=== PATIENT | female | born 1950 | race Caucasian/White ===

== ENCOUNTER 2023-01-21 20:30 | Emergency (ER) | payer MEDICARE, SELFPAY ==
[2023-01-21 20:31] VITALS: BP 154/87; PULSE 82; RESP 18; TEMP 36.7; O2SAT 95; BMI 26.5
[2023-01-21 21:15] LABS: Absolute Lymphocyte Count 2.57 X10^3/uL (0.83-4.51); Absolute Neutrophil Count 3.5 X10^3/uL (2.0-7.7); Basophil# 0.05 X10^3/uL; Basophil% 0.7 % (0-1); Eosinophil# 0.49 X10^3/uL; Eosinophils% 6.7 % (0-5); Hematocrit 36.7 % (37-47); Hemoglobin 11.4 g/dL (12.0-15.0); Lymphocyte # 2.57 X10^3/ul (0.83-4.51); Lymphocyte % 35.2 % (19-41); Mean Corp Hgb Conc 31.1 g/dL (32-36); Mean Corpuscular Hgb 24.3 pg (27.0-32.0); Mean Corpuscular Volume 78.3 fL (81-99); Mean Platelet Vol. 10.6 fl (6.2-12.0); Monocyte# 0.64 X10^3/uL; Monocyte% 8.8 % (0-10); NRBC Flagged by Analyzer 0 % (0-5); Neutrophil # 3.51 X10^3/uL (2.7-7.7); Neutrophil % 48.1 % (47-70); Platelet Count 335 K/mm3 (150-450); RBC Distribution Width CV 16.3 % (11.6-14.6); RBC Distribution Width SD 45.6 fl (35.1-43.9); Red Blood Count 4.69 M/mm3 (4.2-5.4); White Blood Count 7.3 K/mm3 (4.4-11.0)
[2023-01-21 21:35] LABS: ALB/GLOB Ratio 0.6 RATIO (0.9-2.4); AST(SGOT) 17 U/L (15-37); Alanine Aminotransfer ALT/SGPT 31 U/L (13-56); Albumin, Serum 2.6 g/dL (3.2-5.0); Alkaline Phosphatase 133 U/L (45-117); Anion Gap 5 (5-15); BUN 7 mg/dL (7-18); Calcium,Total 8.4 mg/dL (8.5-10.1); Chloride 110 mmol/L (98-107); EST Glomerular Filtration Rate 58 mL/min (>60); Est Glom Filt Rate - Afr Amer 70 mL/min (>60); Estimated Creatinine Clearance 48.72 ml/min; Glucose 99 mg/dL (74-106); Lipase 27 U/L (13-75); Potassium 3.2 mmol/L (3.5-5.1); Protein, Total 6.6 g/dL (6.4-8.2); Sodium Level 143 mmol/L (136-145)
--- NOTE | 2023-01-21 22:07 | ED.VIS.GI ---
HPI HPI - GI History of Present Illness Chief Complaint: GI Bleed Narrative Narrative: 72-year-old female presenting with blood in her stool. She has history of hemorrhoids but does not believe a cause. She shows me a picture of a with a small amount of blood in the stool. She does not feel lightheaded, dizzy, short of breath. She not on any blood thinners. She states she does have some discomfort in her abdomen because she recently had a hiatal hernia repair but her surgical scars appear to be okay. Patient has not had fever, chills. No urinary complaints. Has been eating and drinking normally. Patient does have history of diverticulitis but states he is not having significant left lower quadrant pain PFSH PFSH Home Medications citalopram 20 mg tablet 20 mg PO DAILY 04/14/13 [History Last Taken Unknown] levothyroxine 50 mcg tablet 50 mcg PO DAILY 04/14/13 [History Last Taken Unknown] lorazepam 1 mg tablet 1 mg PO TID ##10 04/14/13 [Rx Last Taken Unknown] omeprazole 20 mg capsule,delayed release 30 mg PO DAILY 04/14/13 [History Last Taken Unknown] amoxicillin 875 mg-potassium clavulanate 125 mg tablet 1 tab PO BID #20 tabs 01/21/23 [Rx Last Taken Unknown] Allergy/AdvReac Type Severity Reaction Status Date / Time tobramycin Allergy Intermediate Swelling Verified 01/21/23 20:36 Social History Smoking Status: Never smoker ROS [facility] ED Constitutional Constitutional ED: Denies chills, fever(s) or sweats Eyes Eyes: Denies blurry vision or change in vision ENT ENT ED: Denies ear pain or sore throat Cardiovascular Cardiovascular: Denies chest pain, palpitations or racing heartbeat Respiratory/Chest Respiratory/Chest: Denies cough, dyspnea or sputum Gastrointestinal Gastrointestinal: Reports abdominal pain and other Details: Blood in stool, hemorrhoid ; Denies constipation, diarrhea, nausea or vomiting Genitourinary Genitourinary ED: Denies dysuria, hematuria or urinary frequency Musculoskeletal Musculoskeletal: Denies arthralgias, myalgias or neck pain Integumentary Denies abscess, Abrasions or rash Neurologic Neurologic: Denies headache(s), paresthesias or weakness Psychiatric Psychiatric: Denies anxiety, depression, suicidal ideation or suicidal thoughts Endocrine Endocrinology: Denies polydipsia or polyuria EXAM Physical Exam Const Vital Signs: 01/21/23 20:31 Temperature 98.0 F Temperature Source Temporal Pulse Rate 82 Respiratory Rate 18 Blood Pressure 154/87 H Blood Pressure Mean 109 Pulse Ox 95 Oxygen Delivery Method Room Air Positive well nourished HEENT Reports TM's clear and moist mucous membranes normocephalic and atraumatic Tympanic Membrane ED: Yes TM's clear Eyes PERRL Resp normal respiratory effort Cardio regular rate and regular rhythm GI GI Narrative: Surgical scars appear to be clean, dry, intact. Abdomen shows no peritoneal signs. She does have nonbleeding, nonthrombosed circumferential hemorrhoids around the rectum. Palpation: soft Neuro CN's II-XII intact bilaterally and moves all extremities Sensorium / Orientation: alert Psych mental status grossly normal MDM MDM MDM Narrative Medical decision making narrative: Patient presenting with blood in stool. She states it was a small amount. She showed me some images which shows a small amount. Differential includes bleeding hemorrhoids, diverticulitis, colitis, postoperative bleeding, anemia. CBC is obtained to assess for white blood cell count, hemoglobin, platelets. CMP to assess renal function, electrolytes and liver function. Patient denies analgesia. Are perirectal hemorrhoids although I do not see any blood here. CBC shows a hemoglobin of 11.4. On 01/15/2023 this was 10.7 so this is actually improved. White blood cell count today is 7.3 and on the it was 7.29 so it is very similar.LFTs are normal. Lipase negative. CT of the abdomen pelvis with IV contrast. He is abdomen pelvis with IV contrast shows concern for postoperative changes at the distal esophagus versus loculated pleural effusion. Patient still complaining any shortness of breath. I was able to speak to her surgeon Dr. Alvarado, and she did state that clear there would be some postoperative changes at the distal esophagus following a Marie fundoplication which is what the patient ultimately had. She stated that the contents will be arranged. It is also interpreted as possible small pleural effusions. The surgeon did tell me that she was hypoxic for short time after the surgery but recovered well and then ended up going home. She did not require any oxygen here. She denies chest pain or shortness of breath. CT scan also indicates there is some colitis which is nonspecific which may be causing the bleeding. I discussed this with the surgeon as well and ultimately we decided to put the patient on Augmentin and have her follow-up as an outpatient. Return precautions were discussed. Impression: 1. Colitis 2. History of Marie fundoplication 3. Lower GI bleed stable. Lab Data Attestation: I reviewed the patient's lab results. Labs: Laboratory Results - last 24 hr 01/21/23 21:10 WBC 7.3 RBC 4.69 Hgb 11.4 L Hct 36.7 L MCV 78.3 L MCH 24.3 L MCHC 31.1 L RDW Std Deviation 45.6 H RDW Coeff of Desire 16.3 H Plt Count 335 MPV 10.6 Immature Gran % (Auto) 0.500 Neut % (Auto) 48.1 Lymph % (Auto) 35.2 [place] % (Auto) 8.8 Eos % (Auto) 6.7 H Baso % (Auto) 0.7 Absolute Neuts (auto) 3.5 Absolute Lymphs (auto) 2.57 Nucleated RBC % 0 Sodium 143 Potassium 3.2 L Chloride 110 H Carbon Dioxide 28.0 Anion Gap 5 BUN 7 Creatinine 1.00 Estim Creat Clear Calc 48.72 Est GFR (MDRD) Af Amer 70 Est GFR (MDRD) Non-Af 58 L BUN/Creatinine Ratio 7.0 L Glucose 99 Calcium 8.4 L Total Bilirubin 0.30 AST 17 ALT 31 Alkaline Phosphatase 133 H Total Protein 6.6 Albumin 2.6 L Globulin 4.0 Albumin/Globulin Ratio 0.6 L Lipase 27 Radiography Diagnostic Testing: Clinical Impression(s) from Imaging Studies Abdomen/Pelvis CT 01/21/23 22:17 IMPRESSION: Possible mild colitis, clinical correlation recommended. Mild bilateral pleural effusions. Question loculated pleural effusion versus postoperative change surrounding the distal esophagus near midline. Multilobar basilar atelectasis. Status post cholecystectomy and hysterectomy. Trace amount of fluid within the lower pelvis as described, etiology indeterminate. Electronically Signed: Angela Castillo MD at 22:38 EDT , Discharge Plan Triage Chief Complaint: GI Bleed ED Provider: Smooth Birch Dx/Rx/DC Orders Instructions: ED Lower GI Bleeding (Stable) Prescriptions: New amoxicillin-pot clavulanate 875-125 mg tablet 1 tab PO BID Qty: 20 0RF No Action citalopram 20 MG tablet 20 mg PO DAILY levothyroxine 50 MCG tablet 50 mcg PO DAILY omeprazole 20 MG capsule,delayed release(DR/EC) 30 mg PO DAILY lorazepam 1 MG tablet 1 mg PO TID Qty: 10 0RF Primary Care Provider: Gen Hernandez Referrals: Gen Hernandez MD [Primary Care Provider] - Disposition Disposition: Home, Self Care Discharge Date/Time: 01/21/23 23:28
--- NOTE | 2023-01-21 22:17 | CT_ITS ---
STUDY: CT ABDOMEN AND PELVIS WITH CONTRAST REASON FOR EXAM: Female, 72 years old. abdominal pain/gi bleed RADIATION DOSAGE (If Supplied By Facility): CTDIvol = ( 16.25 ) mGy, DLP = ( 1090.87 ) mGycm TECHNIQUE: Transaxial images were obtained from the dome of the diaphragm to the symphysis pubis without oral contrast. IV 100mL Isovue-370 was administered. Sagittal and coronal images were reconstructed. Individualized dose optimization techniques were used for this CT. COMPARISON: None. FINDINGS: Mild bilateral pleural effusions, right slightly larger compared to left. Multilobar bilateral basilar atelectasis with possible mild bilateral lower lobe scarring. Mild cardiomegaly. There is fluid surrounding the SI focus above the hemidiaphragm which may indicate loculated pleural effusion or sequela of postoperative changes/mild edema. Normal liver. There are surgical clips in the gallbladder fossa consistent with a prior cholecystectomy. Normal spleen. Normal pancreas. Normal bilateral adrenal glands. Normal right kidney. Normal left kidney. Findings suggestive of Marie fundoplication surgery with fluid surrounding the distal esophagus which may be due to postoperative changes versus loculated pleural effusion. Normal small intestine. The colon is incompletely distended with fluid within the lumen and areas of thickening of the wall more so through the right side concerning for mild colitis. There are scattered diverticulosis with no focal signs of diverticulitis. There is non-visualization of the appendix. There is mild atherosclerotic calcification of the abdominal aorta, without a demonstrated aneurysm. Normal inferior vena cava. Normal retroperitoneum. Normal urinary bladder. There is absence of the uterus consistent with a prior hysterectomy. Normal abdominal wall. Mild spondylosis/degenerative disease of the lumbar spine. There is trace amount of fluid within the right lower quadrant and posterior pelvis. CT/Abdomen/Pelvis W IV Cont ONLY IMPRESSION: Possible mild colitis, clinical correlation recommended. Mild bilateral pleural effusions. Question loculated pleural effusion versus postoperative change surrounding the distal esophagus near midline. Multilobar basilar atelectasis. Status post cholecystectomy and hysterectomy. Trace amount of fluid within the lower pelvis as described, etiology indeterminate. Electronically Signed: Angela Castillo MD at 22:38 EDT ,
[2023-01-21] MEDS: Amox/Clavulanate 875 MG Tablet PO (23:23)
== END 2023-01-21 23:28 | disposition home or self-care (01) ==
PROVIDERS: Emergency Provider Student in an Organized Health Care Education/Training Program; PCP Family Medicine; Visit Provider Student in an Organized Health Care Education/Training Program
DX: K92.2 Gastrointestinal hemorrhage, unspecified (principal); K52.9 Noninfective gastroenteritis and colitis, unspecified; Z87.898 Personal history of other specified conditions
CPT/HCPCS: 74177; 80053; 83690; 85025; 99282; Q9967; A4216

== ENCOUNTER 2023-02-12 21:49 | Emergency (ER) | payer MEDICARE, SELFPAY ==
[2023-02-12 21:50] VITALS: BP 103/69; PULSE 75; RESP 18; TEMP 36.6; O2SAT 97; BMI 24.5
[2023-02-12 22:08] VITALS: BP 104/72; BP 107/63; BP 119/68; PULSE 56; PULSE 65; PULSE 80; O2SAT 96
--- NOTE | 2023-02-12 22:08 | CT_ITS ---
STUDY: CT BRAIN WITHOUT CONTRAST REASON FOR EXAM: Female, 72 years old. head trauma RADIATION DOSAGE (If Supplied By Facility): CTDIvol = ( 44.99 ) mGy, DLP = ( 796.11 ) mGycm TECHNIQUE: Transaxial CT imaging of the brain was performed without administration of intravenous contrast material. Individualized dose optimization techniques were used for this CT. COMPARISON: No relevant priors. FINDINGS: Mild scalp swelling/hematoma involving the right posterior vertex. Normal calvarium. There is mild cerebral atrophy with widening of the extra-axial spaces and ventricular dilatation. Normal white matter tracts of the cerebral hemispheres. Normal basal ganglia and thalami. Normal brainstem. Normal cerebellum. There is no intracranial hemorrhage. There are no findings of an acute ischemic infarction. Normal visualized paranasal sinuses. CT/Brain/Head without Contrast IMPRESSION: Involutional changes, otherwise normal CT brain for age. Mild hematoma involving the right posterior vertex with no skull fracture. Electronically Signed: Angela Castillo MD at 23:15 EST ,
--- NOTE | 2023-02-12 22:09 | EDS_ITS ---
HPI History of Present Illness Chief Complaint: Syncope Informant: patient Onset/Context/Timing Onset: Today Context: Sudden Onset Current Severity: Gone Maximum Severity: Moderate Narrative Narrative: 72-year-old female recent hiatal hernia repair surgery done at the [facility] in December. Said tonight she felt she ate too much went to the bathroom. Had a syncopal episode. She felt lightheaded prior to the incident. Denied any chest pain or shortness of breath. Said when she awoke she had a contusion on the back of her head. Did have a loss of consciousness. Denies any neck pain or other injuries. She is not on any blood thinners. Denies any recent illness other than diarrhea since the surgery. Prior similar symptoms: No Recent Illness/Hospitalization: Yes PFSH PFSH Medical History Hx of hiatal hernia Home Medications citalopram 20 mg tablet 20 mg PO DAILY 04/14/13 [History Last Taken Unknown] levothyroxine 50 mcg tablet 50 mcg PO DAILY 04/14/13 [History Last Taken Unknown] omeprazole 20 mg capsule,delayed release 30 mg PO DAILY 04/14/13 [History Last Taken Unknown] amoxicillin 875 mg-potassium clavulanate 125 mg tablet 1 tab PO BID #20 tabs 01/21/23 [Rx Last Taken Unknown] potassium chloride 20 mEq tablet,extended release(part/cryst) 20 meq PO DAILY 02/12/23 [History Last Taken Unknown] ropinirole 1 mg tablet 1 mg PO QHS 02/12/23 [History Last Taken Unknown] Allergy/AdvReac Type Severity Reaction Status Date / Time tobramycin Allergy Intermediate Swelling Verified 02/12/23 21:53 Social History Smoking Status: Never smoker ROS ROS ED ROS Narrative Diarrhea Review of Systems ROS Unobtainable: Denies due to encephalopathy Constitutional Constitutional ED: Denies chills or fever(s) Eyes Eyes: Denies blurry vision ENT ENT ED: Denies ear pain Cardiovascular Cardiovascular: Denies chest pain Respiratory/Chest Respiratory/Chest: Denies cough or dyspnea Gastrointestinal Gastrointestinal: Denies abdominal pain Genitourinary Genitourinary ED: Denies dysuria or hematuria Musculoskeletal Musculoskeletal: Denies arthralgias Integumentary Denies abscess Neurologic Neurologic: Reports headache(s) Psychiatric Psychiatric: Denies anxiety or depression Hematologic/Lymphatic Hematologic/Lymphatic: Reports none Allergic/Immunologic Allergic/Immunologic ED: Denies mouth swelling, tongue swelling or urticaria EXAM Physical Exam Narrative Exam Narrative: Well-appearing 72-year-old female. Vital signs are stable afebrile. Pulse ox 97% on room air no signs of hypoxia. H EENT exam reactive light. No trauma to her face or top of her scalp. Right posterior occipital region of her scalp she has a contusion. No laceration or blood. C-spine and neck nontender. Back and spine nontender. Lungs are clear. Heart regular rhythm no murmur. Rate is 75. Chest wall and ribs nontender. Abdomen soft nontender. Pelvic girdle intact. Moving all 4 extremities. 5 of 5 healthcare applications analyst strength. Dorsi plantarflexion intact. Normal range of motion about upper and lower extremities. Nontender. Neurologically she is awake and alert with no focal motor deficits. GCS of 15. Const Vital Signs: 02/12/23 21:50 02/12/23 21:59 02/12/23 22:08 Temperature 97.9 F Temperature Source Temporal Pulse Rate 75 Pulse Rate [Lying] Pulse Rate [Sitting (for 1 minute prior to obtaining)] Pulse Rate [Standing (for 1 minute prior to obtaining)] Respiratory Rate 18 Respiratory Effort Normal Respiratory Pattern Normal Blood Pressure 103/69 Blood Pressure [Lying] Blood Pressure [Sitting (for 1 minute prior to obtaining)] Blood Pressure [Standing (for 1 minute prior to obtaining)] Blood Pressure Mean 80 Blood Pressure Mean [Lying] Blood Pressure Mean [Sitting (for 1 minute prior to obtaining)] Blood Pressure Mean [Standing (for 1 minute prior to obtaining)] Pulse Ox 97 96 Oxygen Delivery Method Room Air Room Air 02/12/23 23:05 02/12/23 22:08 02/12/23 23:12 Temperature Temperature Source Pulse Rate 64 Pulse Rate [Lying] 53 L 56 L Pulse Rate [Sitting (for 1 minute prior to obtaining)] 65 Pulse Rate [Standing (for 1 minute prior to obtaining)] 80 Respiratory Rate 17 Respiratory Effort Respiratory Pattern Blood Pressure 104/72 Blood Pressure [Lying] 107/63 107/63 Blood Pressure [Sitting (for 1 minute prior to obtaining)] 119/68 Blood Pressure [Standing (for 1 minute prior to obtaining)] 104/72 Blood Pressure Mean 82 Blood Pressure Mean [Lying] 77 77 Blood Pressure Mean [Sitting (for 1 minute prior to obtaining)] 85 Blood Pressure Mean [Standing (for 1 minute prior to obtaining)] 82 Pulse Ox 95 Oxygen Delivery Method Room Air Positive well nourished and well developed; Negative for cachectic, contractures or unkempt General Appearance ED: well developed and NAD; Negative for unkempt, cachectic, contractures, cyanotic or diaphoretic Nutritional Appearance: Negative for cachectic HEENT Reports moist mucous membranes; Denies dry mucous membranes trauma and tenderness Mouth ED: No dry mucous membranes Mouth: No dry mucous membranes Eyes PERRL and EOMs intact bilaterally General Eye ED: Negative for pale conjunctiva, scleral icterus or other Neck no lymphadenopathy, supple and no JVD General: Negative for tenderness Lymph Lymphatic: Negative for other Chest Wall inspection of chest normal and palpation of chest normal Chest: Negative for other Resp normal respiratory effort and clear to auscultation bilaterally Effort and Inspection: Negative for retractions Auscultation: Negative for rales, rhonchi or wheezes Cardio regular rate, regular rhythm, S1 normal heart sound, S2 normal heart sound and no murmurs Palpation: Negative for palpable S3 Rate: Negative for bradycardia Rhythm: Negative for abnormal rhythm GI normal to inspection, nondistended, normoactive bowel sounds, non-tender and non-distended Inspection: Negative for abdominal distention Auscultation: normoactive bowel sounds Palpation: soft; Negative for tender or guarding Back/Spine no CVA tenderness General Back: Negative for CVA tenderness Cervical Spine: Negative for cervical spine tenderness Thoracic Spine / Upper Back: Negative for thoracic spinal tenderness Lumbar Spine / Lower Back: Negative for lumbar spinal tenderness Extremity normal to inspection General Extremety ED: Negative for edema or tenderness General Extremity: Negative for edema Neuro oriented x3 and CN's II-XII intact bilaterally Sensorium / Orientation: alert; Negative for orientation impaired, lethargic or stuporous Sensory Exam: No sensory level loss detected Motor Exam: strength 5/5 throughout Psych mental status grossly normal Appearance: Negative for unkempt Attitude: No agitated Mood & Affect: Negative for depressed, anxious or tearful Skin no rashes or lesions noted, no wounds and skin turgor normal General Skin Exam: elasticity normal; Negative for jaundice Lesions: No lesion noted Rashes: No rashes noted Trauma: Negative for abrasion Wounds: Negative for wounds noted MDM MDM MDM Narrative Medical decision making narrative: 72-year-old female syncopal episode fell the toilet hit her head. CAT scan of her brain will be obtained. Cardiac workup. Exam is benign. This may have been vasovagal. Could be from orthostasis. Rule out dehydration, cardiac dysrhythmia anemia, etc. Repeat exam patient doing well at 12:08 AM. Exam is unchanged. She is awake alert. There is 2 female either family members or friends are present in the room. We went over all of her test results. They were basically unremarkable. Both the patient and family are comfortable with her being discharged home. Also her orthostatic vital signs were unremarkable. History & Record Review Discussion w/independent historian: Patient Additional record(s) reviewed:: Prior inpatient record, Prior outpatient record, Prior ED visit and Prior labs Lab Data Attestation: I reviewed the patient's lab results. Lab results narrative: CBC shows a white count of 10. H&H of 12.8 and 40. Platelets of 236. Electrolytes show a gap of 5 BUN and creatinine of 14 and 1.1. Glucose 127. Troponin is normal at 5 Labs: Laboratory Results - last 24 hr 02/12/23 22:25 WBC 10.8 RBC 5.14 Hgb 12.8 Hct 40.1 MCV 78.0 L MCH 24.9 L MCHC 31.9 L RDW Std Deviation 46.5 H RDW Coeff of Desire 16.5 H Plt Count 236 MPV 11.6 Immature Gran % (Auto) 0.500 Neut % (Auto) 70.2 H Lymph % (Auto) 17.3 L [place] % (Auto) 7.0 Eos % (Auto) 4.5 Baso % (Auto) 0.5 Absolute Neuts (auto) 7.6 Absolute Lymphs (auto) 1.87 Nucleated RBC % 0 Sodium 139 Potassium 3.5 Chloride 108 H Carbon Dioxide 26.0 Anion Gap 5 BUN 14 Creatinine 1.15 H Estim Creat Clear Calc 42.37 Est GFR (MDRD) Af Amer 59 L Est GFR (MDRD) Non-Af 49 L BUN/Creatinine Ratio 12.2 Glucose 127 H Calcium 9.3 Troponin I High Sens 5 Radiography Chest X-Ray - ED: 1 View, Read by ED Physician, Read by Radiologist, Normal, Heart, Lungs, Mediastinum, Bony Structures and No Acute Disease Diagnostic Testing: Clinical Impression(s) from Imaging Studies Brain CT 02/12/23 22:08 IMPRESSION: Involutional changes, otherwise normal CT brain for age. Mild hematoma involving the right posterior vertex with no skull fracture. Electronically Signed: Angela Castillo MD at 23:15 EST , Chest X-Ray 02/12/23 22:35 IMPRESSION: No acute cardiopulmonary disease. Electronically Signed: Angela Castillo MD at 23:14 EST , Chest x-ray, portable, single view, interpreted both myself and radiologist shows no acute abnormality. Normal cardiac silhouette. Normal lung rtacy. CT of the brain without contrast showed a right-sided posterior hematoma of the scalp. No intracranial bleed. No skull fracture. Read by the radiologist and reviewed by me. Rhythm Strip Rhythm Strip: Sinus Rhythm Rate: 63 Ectopy: None EKG Initial EKG: Attestation: I personally reviewed and interpreted this EKG as follows: Interpretation: Sinus Rhythm and No Acute Injury Pattern Comments: Normal sinus rhythm rate of 63 no signs of acute OH or ST elevation. There is inverted T waves in leads V1, V2 and V3. Were attempting t o find an old EKG for comparison. Marketing Services Coordinator was able to locate a prior EKG from March 2013. That did show the same inverted T waves in leads V1, V2, V3 so there is no significant change from the prior EKG. Prior EKG tracings: available for review Prior: Unchanged Discharge Plan Triage Chief Complaint: Syncope ED Provider: Theodore Sheppard Dx/Rx/DC Orders Clinical Impression: Closed head injury, Syncope, Fall Instructions: Causes of Syncope, ED Head Injury (Adult) Prescriptions: No Action citalopram 20 MG tablet 20 mg PO DAILY levothyroxine 50 MCG tablet 50 mcg PO DAILY omeprazole 20 MG capsule,delayed release(DR/EC) 30 mg PO DAILY ropinirole 1 mg tablet 1 mg PO QHS potassium chloride 20 mEq tablet,ER particles/crystals 20 meq PO DAILY Patient Comments: TAKE 1 TABLET BY MOUTH ONCE DAILY WITH BREAKFAST amoxicillin-pot clavulanate 875-125 mg tablet 1 tab PO BID Qty: 20 0RF Primary Care Provider: Gen Hernandez Referrals: Gen Hernandez MD [Primary Care Provider] - 3-5 Days Activity Restrictions/Additional Instructions: Your labs tonight, EKG, chest x-ray and CAT scan of your brain were unremarkable. No specific cause for why you passed out. Ice to your scalp. Tylenol for any pain. Follow-up with your doctor. Return if you are feeling worse. Disposition Disposition: Home, Self Care
[2023-02-12 22:33] LABS: Absolute Lymphocyte Count 1.87 X10^3/uL (0.83-4.51); Absolute Neutrophil Count 7.6 X10^3/uL (2.0-7.7); Basophil# 0.05 X10^3/uL; Basophil% 0.5 % (0-1); Eosinophil# 0.49 X10^3/uL; Eosinophils% 4.5 % (0-5); Hematocrit 40.1 % (37-47); Hemoglobin 12.8 g/dL (12.0-15.0); Lymphocyte # 1.87 X10^3/ul (0.83-4.51); Lymphocyte % 17.3 % (19-41); Mean Corp Hgb Conc 31.9 g/dL (32-36); Mean Corpuscular Hgb 24.9 pg (27.0-32.0); Mean Platelet Vol. 11.6 fl (6.2-12.0); Monocyte# 0.76 X10^3/uL; NRBC Flagged by Analyzer 0 % (0-5); Neutrophil # 7.59 X10^3/uL (2.7-7.7); Neutrophil % 70.2 % (47-70); Platelet Count 236 K/mm3 (150-450); RBC Distribution Width CV 16.5 % (11.6-14.6); RBC Distribution Width SD 46.5 fl (35.1-43.9); Red Blood Count 5.14 M/mm3 (4.2-5.4); White Blood Count 10.8 K/mm3 (4.4-11.0)
--- NOTE | 2023-02-12 22:35 | RAD_ITS ---
STUDY: X-RAY CHEST REASON FOR EXAM: Female, 72 years old. chest pain TECHNIQUE: Single AP portable view of the chest. COMPARISON: 04/14/2013. FINDINGS: The lungs are clear and expanded. There is no demonstrated pleural abnormality. There is borderline cardiomegaly. Normal mediastinum and isidro. Normal visualized pulmonary arteries. There is atherosclerotic calcification of the aortic arch with tortuosity. There are diffuse degenerative changes of the visualized thoracic spine. Normal visualized ribs, clavicles, and shoulders. There is no demonstrated abnormality of the visualized soft tissue structures of the upper abdomen. RAD/Chest 1 View (Portable) IMPRESSION: No acute cardiopulmonary disease. Electronically Signed: Angela Castillo MD at 23:14 EST ,
[2023-02-12 22:54] LABS: Anion Gap 5 (5-15); BUN 14 mg/dL (7-18); BUN/Creat Ratio 12.2 RATIO (10-20); Calcium,Total 9.3 mg/dL (8.5-10.1); Chloride 108 mmol/L (98-107); Creatinine, Serum 1.15 mg/dL (0.55-1.02); EST Glomerular Filtration Rate 49 mL/min (>60); Est Glom Filt Rate - Afr Amer 59 mL/min (>60); Estimated Creatinine Clearance 42.37 ml/min; Glucose 127 mg/dL (74-106); Potassium 3.5 mmol/L (3.5-5.1); Sodium Level 139 mmol/L (136-145); Troponin-I HS 5 pg/mL (3.0-54.0)
[2023-02-12 23:05] VITALS: BP 107/63; PULSE 53
[2023-02-12 23:12] VITALS: BP 104/72; PULSE 64; RESP 17; O2SAT 95
[2023-02-13 00:03] VITALS: PULSE 75; RESP 15; O2SAT 94
== END 2023-02-13 00:19 | disposition home or self-care (01) ==
PROVIDERS: Emergency Provider Emergency Medicine; PCP Family Medicine; Visit Provider Emergency Medicine
DX: S09.90XA Unspecified injury of head, initial encounter (principal); R55 Syncope and collapse; Y92.002 Bathroom of unspecified non-institutional (private) residence as the place of occurrence of the external cause; W01.198A Fall on same level from slipping, tripping and stumbling with subsequent striking against other object, initial encounter
CPT/HCPCS: 70450; 71045; 80048; 84484; 85025; 93005; 99285; A4216

== ENCOUNTER 2023-10-28 16:37 | Emergency (ER) | payer MEDICARE, SELFPAY ==
[2023-10-28 16:38] VITALS: BP 128/97; PULSE 89; RESP 18; TEMP 36.2; O2SAT 99
[2023-10-28 16:39] VITALS: BP 149/78; PULSE 80; RESP 17; TEMP 36.6; O2SAT 95; BMI 26.0
--- NOTE | 2023-10-28 16:45 | EX.ED.DYSGE1 ---
HPI History of Present Illness Chief Complaint: Wound Check [facility] Medical History (Updated 10/28/23 @ 16:49 by America Holliday) FHx: cholecystectomy Pituitary abnormality Fatty liver Stage 3 chronic kidney disease Hx of hiatal hernia Home Medications ?Medication ?Instructions ?Recorded ?Last Taken ?Type citalopram 20 mg tablet 20 mg PO DAILY 04/14/13 Unknown History levothyroxine 50 mcg tablet 50 mcg PO DAILY 04/14/13 Unknown History omeprazole 20 mg capsule,delayed 30 mg PO DAILY 04/14/13 Unknown History release amoxicillin 875 mg-potassium 1 tab PO BID #20 tabs 01/21/23 Unknown Rx clavulanate 125 mg tablet potassium chloride 20 mEq 20 meq PO DAILY 02/12/23 Unknown History tablet,extended release(part/cryst) ropinirole 1 mg tablet 1 mg PO QHS 02/12/23 Unknown History Allergy/AdvReac Type Severity Reaction Status Date / Time tobramycin Allergy Intermediate Swelling Verified 10/28/23 16:37 Surgical History (Updated 10/28/23 @ 16:49 by America Holliday) H/O: hysterectomy Social History Smoking Status: Never smoker EXAM Physical Exam Const Vital Signs: 10/28/23 16:38 10/28/23 16:39 Temperature 97.2 F L 97.9 F Temperature Source Temporal Oral Pulse Rate 89 80 Respiratory Rate 18 17 Blood Pressure 128/97 H 149/78 H Blood Pressure Mean 107 101 Pulse Ox 99 95 Oxygen Delivery Method Room Air Room Air [facility] MDM Narrative Medical decision making narrative: HISTORY OF PRESENT ILLNESS: 72-year-old female presents with concern for leg swelling. Notes she got sutures placed on Thursday. Since then she has noted redness, swelling and slight discharge. No fevers or chills. She is not diabetic. REVIEW OF SYSTEMS: Pertinent positives: Leg swelling, redness, discharge Pertinent negatives: Chest pain, shortness of breath, calf tenderness PHYSICAL EXAM: Nursing triage notes reviewed, Vital signs reviewed Constitutional: please see mdm HENT: MMM Extremities: Trace edema to left foot, bruising noted. Neuro: Intact sensation L1-S1 dermatomal distributions. Intact 5/5 strength in hip flexion (T12-L3). Knee extension (L2-L4). Ankle dorsiflexion (L4-L5). Ankle plantar flexion (S1). Great toe extension (L5). 2+ patellar and Achilles DTRs. Skin: No crepitus or bullae noted to left lower extremity at suture site, erythema noted MEDICAL DECISION MAKING: Chief Complaint: Wound check External records reviewed: Last ER visit in our records was in 2022 Factors affecting care: none GERD, hypothyroidism MDM Narrative: The patient was initially hemodynamically stable, afebrile and nontoxic-appearing. Exam with obvious cellulitis. Will give broad-spectrum antibiotics and for Bactrim Keflex. Will give strict return precautions and follow-up instructions. Considered DVT however patient no DVT risk factors had a better explanation for symptoms i.e. cellulitis. Patient intact pulses no sign of arterial occlusion. Intact Hooper sign. No sign of Achilles tendon rupture. Patient noted she had x-rays done on Thursday and they were negative for fracture or dislocation. There was no sign of compartment syndrome on exam. The patient and/or family, caregivers express understanding. The patient and/or family, caregivers agrees with the plan. Shared decision making: I will have a discussion with the patient and or visitors regarding risk/benefits of further testing or admission. They will be made aware of of the risk/benefits inherent in this decision they will be given the opportunity to voice understanding. Total critical care time today provided was at least 0 minutes. This excludes separately billable procedures. Critical care time (if documented) is secondary to the patient having high probability of clinically significant/life threatening deterioration in the patient's condition which required my urgent intervention. Impression: 1. Cellulitis 2. Wound infection Dispo: Discharge home This note was generated with Pansieve dictation software. It may contain incorrect words, spelling, and punctuation that were not noted in review of the chart prior to signing. Discharge Plan Triage Chief Complaint: Wound Check ED Provider: Christopher Zhang Dx/Rx/DC Orders Instructions: ED Wound Check (Infection) Prescriptions: No Action citalopram 20 MG tablet 20 mg PO DAILY levothyroxine 50 MCG tablet 50 mcg PO DAILY omeprazole 20 MG capsule,delayed release(DR/EC) 30 mg PO DAILY ropinirole 1 mg tablet 1 mg PO QHS potassium chloride 20 mEq tablet,ER particles/crystals 20 meq PO DAILY Patient Comments: TAKE 1 TABLET BY MOUTH ONCE DAILY WITH BREAKFAST amoxicillin-pot clavulanate 875-125 mg tablet 1 tab PO BID Qty: 20 0RF Primary Care Provider: Gen Hernandez Referrals: Gen Hernandez MD [Primary Care Provider] - Print Language: Amharic
[2023-10-28] MEDS: Smz/Tmp Ds Tablet 1 TABLET PO (17:13)
[2023-10-28] MEDS: Cephalexin 250 MG Capsule 500 MG PO (17:13)
[2023-10-28 17:14] VITALS: BP 146/75; PULSE 79; RESP 18; TEMP 36.7; O2SAT 96
== END 2023-10-28 17:38 | disposition home or self-care (01) ==
LOC: ED 17:29
PROVIDERS: Emergency Provider Emergency Medicine; PCP Family Medicine; Visit Provider Emergency Medicine
DX: L03.116 Cellulitis of left lower limb (principal)
CPT/HCPCS: 99283